=== PATIENT | male | born 1960 | race African-American/Black ===

== ENCOUNTER 2016-09-27 22:17 | Emergency (ER) | payer OTHER ==
[~2016-09-27] VITALS: Ht 172.7 cm; Wt 95.2 kg
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
[~2016-09-27 22:17] MED LIST: FLEXERIL10 MG PO; VICODIN 5/500 T1 TAB PO
== END 2016-09-28 01:25 | disposition home or self-care (01) ==
LOC: CFTX 22:17 → CED 22:17 → CFTX 23:59
DX: S16.1XXA Strain of muscle, fascia and tendon at neck level, initial encounter (principal); S39.012A Strain of muscle, fascia and tendon of lower back, initial encounter; M54.31 Sciatica, right side; X50.9XXA Other and unspecified overexertion or strenuous movements or postures, initial encounter
CPT/HCPCS: 72040; 72100; 99283